=== PATIENT | female | born 1965 | race African-American/Black ===

== ENCOUNTER 2016-12-26 12:52 | Emergency (ER) | payer BC ==
[~2016-12-26] VITALS: Ht 154.9 cm; Wt 59.0 kg
[~2016-12-26 12:52] MED LIST: HYDR5TAB; LEVO25TA7
[2016-12-26] MEDS ORDERED: DICYCLOMINE 10 MG/5 ML ORAL SYR PO STA (14:06)
[2016-12-26] MEDS ORDERED: ONDANSETRON HCL 4MG/2ML VIAL IV STA (14:06)
[2016-12-26] MEDS ORDERED: KETOROLAC 30MG/ML VIAL IV STA (14:06)
[2016-12-26] MEDS ORDERED: SODIUM CHLORIDE 0.9% 1,000 ML IV ONE (14:06)
[2016-12-26 14:26] LABS: BASOPHILS % 0.5 % (0.0-2.0); EOSINOPHILS % 0.7 % (0.0-5.0); HEMATOCRIT. 37.5 % (36.0-48.0); HEMOGLOBIN. 12.7 g/dL (12.0-16.0); LYMPHOCYTES % 35.8 % (20.0-50.0); MEAN CORPUSCULAR HEMOGLOBIN 33.1 pg (28.0-32.0); MEAN CORPUSCULAR HGB CONC 33.8 g/dL (31.0-37.0); MEAN PLATELET VOLUME 10.3 fl (7.4-10.4); MONOCYTES % 4.1 % (2.0-8.0); NEUTROPHILS % 58.9 % (40.0-76.0); PLATELET 161 x1000/uL (130-400); RED BLOOD CELL COUNT 3.82 mill/uL (4.2-5.4); RED CELL DISTRIBUTION WIDTH 15.1 % (11.6-14.6); WHITE BLOOD COUNT 7.5 x1000/uL (4.5-11.0)
[2016-12-26 14:36] LABS: HCG SCREEN NEGATIVE
[2016-12-26 14:41] LABS: ALANINE AMINOTRANSFERASE 149 IU/L (13-61); ALBUMIN 4.7 g/dL (3.4-5.0); ANION GAP 12; CALCIUM 9.4 mg/dL (8.5-10.1); CARBON DIOXIDE 29 mEq/L (21-32); CHLORIDE 103 mEq/L (98-107); INDEX HEMOLYSI 1 (1-3); INDEX ICTERIC 1 (1-4); INDEX LIPEMIC 1 (1-3); LIPASE 194 IU/L (73-393); UREA NITROGEN BLOOD 10 mg/dL (7-21); eGFR > 60 mL/min (>60)
[2016-12-26 15:02] VITALS: BP 90/62
[2016-12-26] MEDS ORDERED: ONDANSETRON HCL 4MG/2ML VIAL IV ONE (16:30)
[2016-12-26 16:53] LABS: CLARITY URINE CLEAR (CLEAR); COLOR URINE YELLOW (YELLOW); GLUCOSE URINE NEGATIVE (NEGATIVE); KETONES URINE NEGATIVE (NEGATIVE); LEUKOCYTE ESTERASE URINE 1+ (NEGATIVE); NITRITE URINE NEGATIVE (NEGATIVE); OCCULT BLOOD URINE NEGATIVE (NEGATIVE); PH URINE 5.5 (4.5-8.0); PROTEIN URINE NEGATIVE (NEGATIVE); SPECIFIC GRAVITY URINE 1.022 (1.005-1.030); UROBILINOGEN URINE 0.2 E.U./dL (0.2-1.0)
[2016-12-26] MEDS ORDERED: DIPHENOXYLATE/ATROPINE 2.5/0.025MG TABLET PO ONE (17:00)
[2016-12-26] MEDS ORDERED: DIPHENOXYLATE/ATROPINE 2.5/0.025MG TABLET PO NR (17:18)
[2016-12-26 17:21] LABS: MUCUS URINE 2+ /lpf (< = 2+)
[2016-12-26 17:22] LABS: RBC URINE 0-2 /hpf (0-2)
[2016-12-26 17:23] LABS: BACTERIA URINE TRACE; SQUAMOUS EPITHELIAL CELL URINE 1+ /lpf (RARE/1+)
== END 2016-12-26 18:02 | disposition home or self-care (01) ==
LOC: ER 13:22
DX: R10.30 Lower abdominal pain, unspecified (principal); R19.7 Diarrhea, unspecified; J40 Bronchitis, not specified as acute or chronic; F17.210 Nicotine dependence, cigarettes, uncomplicated; Z88.8 Allergy status to other drugs, medicaments and biological substances
CPT/HCPCS: 36415; 80053; 81001; 83690; 84703; 85025; 96361; 96374; 96375; 96376; 99285; J1885; J2405; J7030; Z7610

== ENCOUNTER 2017-03-15 19:36 | Emergency (ER) | payer BC ==
[~2017-03-15] VITALS: Ht 154.9 cm; Wt 59.0 kg
[2017-03-15] MEDS ORDERED: KETOROLAC 60MG/2ML VIAL IM ONE (22:00)
[2017-03-15] MEDS ORDERED: CYCLOBENZAPRINE 10MG TABLET PO ONE (22:00)
[2017-03-15 23:24] VITALS: BP 128/80
== END 2017-03-16 00:05 | disposition home or self-care (01) ==
LOC: ER 21:13
DX: G89.29 Other chronic pain (principal); M54.5 Low back pain; M06.9 Rheumatoid arthritis, unspecified; E23.0 Hypopituitarism; Z88.8 Allergy status to other drugs, medicaments and biological substances
CPT/HCPCS: 72100; 96372; 99284; J1885

== ENCOUNTER 2018-05-24 12:59 | Emergency (ER) | payer BC, MEDICAID ==
[~2018-05-24] VITALS: Ht 154.9 cm; Wt 63.0 kg
[2018-05-24 14:54] LABS: BASOPHILS % 0.7 % (0.0-2.0); EOSINOPHILS % 0.6 % (0.0-5.0); HEMATOCRIT. 32.9 % (36.0-48.0); HEMOGLOBIN. 11.2 g/dL (12.0-16.0); LYMPHOCYTES % 32.4 % (20.0-50.0); MEAN CORPUSCULAR HEMOGLOBIN 33.7 pg (28.0-32.0); MEAN CORPUSCULAR VOLUME 98.6 fL (81.0-99.0); MEAN PLATELET VOLUME 8.6 fl (7.4-10.4); MONOCYTES % 5.9 % (2.0-8.0); NEUTROPHILS % 60.4 % (40.0-76.0); PLATELET 239 x1000/uL (130-400); RED BLOOD CELL COUNT 3.34 mill/uL (4.2-5.4); RED CELL DISTRIBUTION WIDTH 15.3 % (11.6-14.6)
[2018-05-24 15:00] LABS: CHLORIDE 108 mEq/L (98-107)
[2018-05-24 15:02] LABS: INR 1.1; PARTIAL THROMBOPLASTIN TIME 26.4 sec (23.4-31.0); PROTHROMBIN TIME 10.8 sec (9.1-11.1)
[2018-05-24 15:06] LABS: HCG SCREEN NEGATIVE
[2018-05-24] MEDS ORDERED: KETOROLAC 30MG/ML VIAL IV ONE (18:00)
[2018-05-24] MEDS ORDERED: SODIUM CHLORIDE 0.9% 1,000 ML IV ONE (18:00)
[2018-05-24 18:52] VITALS: BP 134/81
== END 2018-05-24 19:14 | disposition home or self-care (01) ==
LOC: ER 12:59
DX: M54.5 Low back pain (principal); G89.29 Other chronic pain; E23.0 Hypopituitarism; E03.9 Hypothyroidism, unspecified; F41.9 Anxiety disorder, unspecified; M79.7 Fibromyalgia; Z88.8 Allergy status to other drugs, medicaments and biological substances
CPT/HCPCS: 36415; 80053; 83690; 84703; 85025; 85610; 85730; 96374; 99284; J1885; J7030; Z7610

== ENCOUNTER 2019-10-31 12:39 | Emergency (ER) | payer MEDICAID, MEDICARE ==
[~2019-10-31] VITALS: Ht 154.9 cm; Wt 58.0 kg
[2019-10-31] MEDS ORDERED: ONDANSETRON HCL 4MG/2ML INJ IV STA ×2 (14:47→16:08)
[2019-10-31] MEDS ORDERED: KETOROLAC 30MG/ML VIAL IV STA (14:47)
[2019-10-31 15:13] LABS: HEMATOCRIT. 42.9 % (36.0-48.0); HEMOGLOBIN. 14.8 g/dL (12.0-16.0); MEAN CORPUSCULAR HEMOGLOBIN 32.4 pg (28.0-32.0); MEAN CORPUSCULAR VOLUME 93.7 fL (81.0-99.0); MEAN PLATELET VOLUME 9.9 fl (7.4-10.4); PLATELET 201 x1000/uL (130-400); RED BLOOD CELL COUNT 4.57 mill/uL (4.2-5.4); RED CELL DISTRIBUTION WIDTH 15.1 % (11.6-14.6)
[2019-10-31 15:22] LABS: CHLORIDE 102 mEq/L (98-107)
[2019-10-31 15:46] LABS: PLATELET ESTIMATE NORMAL
[2019-10-31] MEDS ORDERED: SODIUM CHLORIDE 0.9% 1,000 ML IV ONE (16:08)
[2019-10-31] MEDS ORDERED: MORPHINE SULFATE 4 MG/ML CPJ (NOT FOR IM USE) IV STA (17:46)
[2019-10-31 18:57] VITALS: BP 123/71
== END 2019-10-31 18:59 | disposition home or self-care (01) ==
LOC: ER 13:03
DX: R10.30 Lower abdominal pain, unspecified (principal); R11.2 Nausea with vomiting, unspecified; R53.1 Weakness; E03.9 Hypothyroidism, unspecified; J40 Bronchitis, not specified as acute or chronic; M79.7 Fibromyalgia; F41.9 Anxiety disorder, unspecified; Z87.19 Personal history of other diseases of the digestive system; Z87.39 Personal history of other diseases of the musculoskeletal system and connective tissue; Z90.49 Acquired absence of other specified parts of digestive tract; Z79.899 Other long term (current) drug therapy; Z91.09 Other allergy status, other than to drugs and biological substances
CPT/HCPCS: 36415; 74176; 80053; 85025; 96361; 96374; 96375; 96376; 99284; J1885; J2270; J2405; J7030; Z7610

== ENCOUNTER 2019-11-11 12:20 | Emergency (ER) | payer MEDICAID ==
[~2019-11-11] VITALS: Ht 154.9 cm; Wt 61.0 kg
[2019-11-11] MEDS ORDERED: ONDANSETRON 4MG ODT PO STA (13:27)
[2019-11-11] MEDS ORDERED: ONDANSETRON HCL 4MG/2ML INJ IV STA (13:42)
[2019-11-11] MEDS ORDERED: FAMOTIDINE 20MG/2ML VIAL IV STA (13:42)
[2019-11-11] MEDS ORDERED: SODIUM CHLORIDE 0.9% 1,000 ML IV ONE (13:42)
[2019-11-11] MEDS ORDERED: METOCLOPRAMIDE HCL 10MG/2ML VIAL IV ONE (13:45)
[2019-11-11 14:09] LABS: BASOPHILS % 0.6 % (0.0-2.0); EOSINOPHILS % 0.5 % (0.0-5.0); HEMATOCRIT. 40.2 % (36.0-48.0); HEMOGLOBIN. 13.4 g/dL (12.0-16.0); MEAN CORPUSCULAR HEMOGLOBIN 31.9 pg (28.0-32.0); MEAN CORPUSCULAR VOLUME 95.5 fL (81.0-99.0); MEAN PLATELET VOLUME 9.7 fl (7.4-10.4); MONOCYTES % 6.8 % (2.0-8.0); NEUTROPHILS % 55.1 % (40.0-76.0); PLATELET 193 x1000/uL (130-400); RED BLOOD CELL COUNT 4.21 mill/uL (4.2-5.4); RED CELL DISTRIBUTION WIDTH 15.3 % (11.6-14.6)
[2019-11-11 14:15] LABS: PROTHROMBIN TIME 10.1 sec (9.6-11.0)
[2019-11-11 14:16] LABS: CHLORIDE 112 mEq/L (98-107)
[2019-11-11 14:20] LABS: AMYLASE 49 IU/L (25-115)
[2019-11-11 14:27] LABS: CLARITY URINE CLEAR (CLEAR); COLOR URINE YELLOW (YELLOW); KETONES URINE NEGATIVE (NEGATIVE); LEUKOCYTE ESTERASE URINE NEGATIVE (NEGATIVE); NITRITE URINE NEGATIVE (NEGATIVE); OCCULT BLOOD URINE NEGATIVE (NEGATIVE); PH URINE 6.5 (4.5-8.0); PROTEIN URINE NEGATIVE (NEGATIVE); SPECIFIC GRAVITY URINE 1.035 (1.005-1.030); UROBILINOGEN URINE 0.2 E.U./dL (0.2-1.0)
[2019-11-11] MEDS ORDERED: HYDROCODONE/ACETAMINOPHEN 5/325MG TABLET PO ONE (17:15)
[2019-11-11 17:41] VITALS: BP 151/85
== END 2019-11-11 18:25 | disposition home or self-care (01) ==
LOC: ER 12:20
DX: E86.0 Dehydration (principal); R19.7 Diarrhea, unspecified; R11.2 Nausea with vomiting, unspecified; M06.9 Rheumatoid arthritis, unspecified; M79.7 Fibromyalgia; F41.9 Anxiety disorder, unspecified; Z87.19 Personal history of other diseases of the digestive system; Z90.49 Acquired absence of other specified parts of digestive tract; Z88.8 Allergy status to other drugs, medicaments and biological substances
CPT/HCPCS: 36415; 80053; 81003; 82150; 83690; 85025; 85610; 96361; 96374; 96375; 99284; J2405; J2765; J3490; J7030